=== PATIENT | male | born 1990 | race Caucasian/White ===

== ENCOUNTER → 2016-12-12 | Outpatient (REF) | payer SELFPAY ==
[2016-12-12 16:07] LABS: BASO % 0.7 % (0.0-1.0); EOS # 0.1 K/mm3 (0.0-0.50); LARGE UNSTAINED CELL # 0.1 K/mm3 (0.0-0.4); LARGE UNSTAINED CELL % 1.4 % (0.0-4.0); LYMPH # 1.2 K/mm3 (1.5-6.5); LYMPH % 31.4 % (24.0-44.0); MEAN CORPUSCULAR HEMOGLOBIN 31.6 pg (27.0-33.0); MEAN CORPUSCULAR HGB CONC 33.8 g/dl (32.0-36.5); MEAN CORPUSCULAR VOLUME 93.3 fl (80.0-96.0); MONO # 0.2 K/mm3 (0.0-0.8); MONO % 6.1 % (0.0-5.0); NEUTROPHILS # 2.1 K/mm3 (1.8-7.7); NEUTROPHILS % 57.4 % (36.0-66.0); PLATELET COUNT, AUTOMATED 197 k/mm3 (150-450); RED CELL DISTRIBUTION WIDTH 12.4 % (11.5-14.5); WHITE BLOOD COUNT 3.7 K/mm3 (4.0-10.0)
[2016-12-12 16:15] LABS: ALBUMIN 4.3 GM/DL (3.2-5.2); ALBUMIN/GLOBULIN RATIO 1.34 (1.00-1.93); ALKALINE PHOSPHATASE 53 U/L (45-117); ALT/SGPT 46 U/L (12-78); ANION GAP 7 MEQ/L (8-16); AST/SGOT 42 U/L (15-37); BILIRUBIN,TOTAL 0.5 MG/DL (0.2-1.0); BLOOD UREA NITROGEN 18 MG/DL (7-18); CALCIUM LEVEL 8.8 MG/DL (8.5-10.1); CARBON DIOXIDE LEVEL 30 MEQ/L (21-32); CHLORIDE LEVEL 103 MEQ/L (98-107); CREATININE FOR GFR 1.05 MG/DL (0.70-1.30); GLOMERULAR FILTRATION RATE > 60.0 (>60); GLUCOSE, FASTING 86 MG/DL (70-105); POTASSIUM SERUM 4.2 MEQ/L (3.5-5.1); SODIUM LEVEL 140 MEQ/L (136-145); TOTAL PROTEIN 7.5 GM/DL (6.4-8.2); URIC ACID 4.3 MG/DL (3.5-7.2)
[2016-12-12 18:45] LABS: ERYTHROCYTE SEDIMENTATION RATE 4 mm/hr (0-15)
== END ==
LOC: M LABDRAW1 15:30
PROVIDERS: ATTEND Orthopaedic Surgery
DX: M47.896 Other spondylosis, lumbar region (principal)

== ENCOUNTER → 2016-12-17 | Outpatient (CLI) | payer OTHER ==
--- NOTE | 2016-12-17 19:00 | REP ---
MR THORACIC SPINE WITHOUT CONTRAST: HISTORY: Back pain. A small central disc protrusion is present at the T6-7 level. There is minimal effacement of the thecal sac without spinal cord compression. The T6 neural foramina are patent. A small central disc protrusion is present at the T7-8 level. There is minimal effacement of the thecal sac without spinal cord compression. The T7 neural foramina are patent. A small central disc protrusion is present at the T8-9 level. There is minimal effacement of the thecal sac without spinal cord compression. The T8 neural foramina are patent. There is no other disc bulge or herniation. The remaining neural foramina are patent. The spinal cord is normal in signal and intensity. There is no intradural extramedullary lesion. There are old compression fracture of the T6 through T8 vertebral bodies with minimal height loss. Increased signal intensity on T2 weighted images is present in the endplates of the T7 through 9 vertebral bodies. This represents degenerative change. IMPRESSION: 1. Small disc protrusions at the T6-7 through T8-9 levels without spinal cord compression. 2. Old T6 through T8 compression fractures with minimal height loss. Signed by Yuri Mitchell MD 12/18/2016 08:21 A
--- NOTE | 2016-12-17 19:21 | REP ---
MRI LUMBAR SPINE WITHOUT CONTRAST: HISTORY: Back pain. Decreased signal intensity on T2-weighted images is present in the L4-5 and L5-S1 intervertebral discs. The discs are decreased in height. These findings are consistent with disc degeneration. There is no disc bulge or herniation at the L1-2 and L2-3 level. The nerves exit the neural foramina without compression. A diffuse disc bulge is present at the L3-4 level. There is minimal compression of thecal sac. The L3 nerves exit the neural foramina without compression. A diffuse disc bulge and small central disc protrusion are present at the L4-5 level. There is minimal compression of the thecal sac. The L4 nerves exit the neural foramina without compression. A diffuse disc bulge is present at the L5-S1 level. This abuts the thecal sac. The L5 nerves exit the neural foramina without compression. The conus medullaris is normal in appearance terminating at the level of the T12-L1 intervertebral discs . Normal signal intensity is present in the lumbar vertebral bodies. IMPRESSION: 1. Diffuse disc bulges at the L3-4 with minimal thecal sac compression. 2. Diffuse disc bulge and small central disc protrusion at the L4-5 level with minimal thecal sac compression. 3. Diffuse disc bulge at the L5-S1 level. This abuts the thecal sac. Signed by Yuri Mitchell MD 12/18/2016 08:20 A
== END ==
LOC: M RAD 15:59
PROVIDERS: ATTEND Orthopaedic Surgery
DX: M51.26 Other intervertebral disc displacement, lumbar region (principal); M51.27 Other intervertebral disc displacement, lumbosacral region; M51.24 Other intervertebral disc displacement, thoracic region; Z87.81 Personal history of (healed) traumatic fracture; M47.896 Other spondylosis, lumbar region; M47.894 Other spondylosis, thoracic region

== ENCOUNTER → 2017-05-18 | Outpatient (CLI) | payer OTHER ==
--- NOTE | 2017-06-03 01:00 | ECWPNPC ---
PATIENT NAME: FRAN TREJO : 1990 GENDER: MALE VISIT DATE: 05/18/2017 DISCHARGE DATE: 05/18/17 1626 VISIT LOCKED DATE TIME: PHYSICIAN: FÁTMIA MEDRANO RESOURCE: FÁTIMA MEDRANO REASON FOR APPOINTMENT 1. LOW BACK PAIN HISTORY OF PRESENT ILLNESS NEW PATIENT CONSULT: WHEN DID YOUR PAIN FIRST START? . BRIEFLY DESCRIBE HOW YOUR PAIN STARTED? . HOW DOES YOUR PAIN CHANGE WITH TIME? . DOES YOUR PAIN AWAKEN YOU FROM SLEEP? . HOW MANY HOURS OF SLEEP DO YOU NORMALLY GET? . ANY DIAGNOSTIC TESTING? . FACILITY WHERE TESTS WERE DONE? ____. PAIN TREATMENT TREATMENT YES CANCER HAVE YOU EVER HAD ANY TYPE OF CANCER?NO NO. 26 YEAR OLD MALE PATIENT WITH HISTORY OF CHRONIC LOW BACK PAIN. PATIENT DESCRIBES THE PAIN ACHING, SORE, TENDER, AND HAVING IT ALL THE TIME WITH A PAIN SCORE OF 5/10. PATIENT STATES HIS PAIN STARTED IN THE SUMMER OF 2015 AND HAS GOTTEN PROGRESSIVELY WORSE. PATIENT IS CURRENTLY USING TRAMADOL AND NAPROXEN TO AID IN PAIN RELIEF BUT STATES HE STILL HAS CONSTANT PAIN. PATIENT REPORTS NOT SLEEPING WELL AT NIGHT DUE TO THE PAIN. PATIENT DENIES UNEXPLAINABLE WEIGHT LOSS, FEVER, CHILLS, NEW CHANGES ON HER URINARY OR BOWEL CONTROL. PAIN SCREENING: PATIENT HAS A COMPLAINT OF ACUTE OR CHRONIC PAIN :YES FALL RISK SCREENING: SCREENING :NO FALLS IN THE PAST YEAR RM INVENTORY: QUESTIONNAIRE ASSESSEDTBD SCORE VALUE CALCULATED TBD CURRENT MEDICATIONS TAKING NAPROXEN 500 MG TABLET DELAYED RELEASE 1 TABLET ORALLY TWICE A DAY TAKING TRAMADOL HCL 50 MG TABLET 1 TAB ORALLY EVERY 6 HOURS NEEDED/MMD#4 MEDICATION LIST REVIEWED AND RECONCILED WITH THE PATIENT PAST MEDICAL HISTORY SCOLIOSIS DJD - 6 BULGING DISC ALLERGIES N.K.D.A. SURGICAL HISTORY RIGHT SHOULDER SURGERY ARTHOSCOPIC FEBRUARY 2017 FAMILY HISTORY FATHER: ALIVE MOTHER: ALIVE SIBLINGS: ALIVE SOCIAL HISTORY GENERAL: TOBACCO USE ARE YOU A:NONSMOKER ALCOHOL SCREENING POINTS0 INTERPRETATIONNEGATIVE CATHOLIC CATH[employer] LANGUAGES SPOKEN:NEPALI EDUCATION LEVEL OF EDUCATION:HIGH SCHOOL PAIN CLINIC PFS, CLERGY, PUBLIC HEALTH REFERRALS CLERGY REFERRAL NEEDED?NO WAS THE PROVIDER NOTIFIED OF ANY PERTINENT INFO?NO PFS REFERRAL NEEDED?NO PUBLIC HEALTH REFERRAL NEEDED?NO PATIENT: ____. HOSPITALIZATION/MAJOR DIAGNOSTIC PROCEDURE NO HOSPITALIZATION HISTORY. REVIEW OF SYSTEMS REVIEWED BY: PROVIDER: FÁTIMA MEDRANO MD . CONSTITUTIONAL: ANY CHANGE IN YOUR MEDICAL CONDITION? NO . CHILLS NO . FEVER NO . INFECTION: DO YOU HAVE NEW INFECTIONS? NO . DO YOU HAVE HISTORY OF MRSA? NO . MUSCULOSKELETAL: ANY NEW PATTERNS OF PAIN OR NUMBNESS? SEPTEMBER IS [facility] PT FIRST WENT TO DOCTOR FOR THE PAIN WHICH HAD BEEN BOTHERING HIM FOR A WHILD . SYTEMIC LUPUS NO . GASTROENTEROLOGY: ANY NEW CHANGE IN BOWEL CONTROL? NO . BARRETTS ESOPHAGUS NO . CIRRHOSIS NO . HEPATITIS NO . LIVER FAILURE NO . ACID REFLUX NO . UNEXPLAINED WEIGHT LOSS NO . GENITOURINARY: ANY NEW CHANGE IN BLADDER CONTROL? NO . IS THERE A CHANCE YOU COULD BE ? NO . HEMATOLOGY/LYMPH: DO YOU TAKE ANY BLOOD THINNERS? (FOR EXAMPLE- COUMADIN, PLAVIX, AGGRENOX, PLATEL, PRADAXA, OR XARELTO) NO . WHEN WAS YOUR LAST DOSE? DATE: TIME: . LOW PLATELET COUNT NO . SICKLE CELL DISEASE NO . VON WILLIEBRANDS NO . FACTOR V LEIDEN NO . THALLASEMIA NO . ANEMIA NO . EASY BRUISING NO . NEUROLOGY: HAVE YOU FALLEN IN THE PAST 6 MONTHS? NO . ANY NEW EXTREMITY NUMBNESS OR WEAKNESS? NO . HEAD INJURY NO . DEMENTIA NO . CEREBRAL PALSY NO . MULTIPLE SCLEROSIS NO . DIZZINESS NO . HEADACHE NO . STROKES NO . VERTIGO NO . CARDIOLOGY: DO YOU HAVE A PACEMAKER OR DEFIBRILLATOR? NO . ANGINA NO . HEART ATTACK NO . HEART SURGERY NO . CONGESTIVE HEART FAILURE/FLUID OVERLOAD NO . CHEST PAIN NO . HIGH BLOOD PRESSURE NO . IRREGULAR HEART BEAT NO . RESPIRATORY: HAVE YOU BEEN SICK IN THE PAST WEEK? NO . FEVER NO . FLU LIKE SYMPTOMS? NO . CPAP NO . BYPAP NO . ASTHMA NO . EMPHYSEMA NO . CHRONIC LUNG DISEASES NO . SHORTNESS OF BREATH ON EXERTION NO . DO YOU USE ANY TYPE OF TOBACCO (SMOKE, SMOKELESS, CHEW)? NO . COUGH NO . SNORING NO . INTEGUMENTARY: DO YOU HAVE ANY RASHES OR OPEN SORES? NO . ALLERGIC/IMMUNO: ARE YOU ALLERGIC TO SHELLFISH OR IV DYE? NO . ANY NEW ALLERGIES? NO . PSYCHIATRIC: DO YOU HAVE THOUGHTS OF HURTING YOURSELF OR SOMEONE ELSE? NO . ARE YOU ABUSED, NEGLECTED, OR IN AN UNSAFE ENVIRONMENT? NO . ENDOCRINOLOGY: ARE YOU DIABETIC? NO . THYROID DISORDER NO . OTHER: DO YOU NEED ANY PRESCRIPTIONS? NO . IF YES, PLEASE LIST: ____ . ANY NEW PROBLEMS WITH YOUR MEDICATIONS? NO . WHEN DID YOU LAST EAT? ____ . WHEN DID YOU LAST DRINK? ____ . WHAT DID YOU LAST DRINK? ____ . NAME OF PERSON DRIVING YOU HOME? ____ . DO YOU HAVE ANY OTHER QUESTIONS OR CONCERNS NO . VITAL SIGNS WT 170 LBS, HT 67 IN, BMI 26.62 INDEX, BP 112/61 MM HG, HR 91 /MIN, RR 16 /MIN, TEMP 99.0 F, OXYGEN SAT % 98%, NA INITIALS SC 13:52, REVIEWED BY: KG. EXAMINATION : PATIENT IS ALERT O X 3 AND COOPERATIVE. TENDERNESS IN THE LOWER BACK AND PARASPINAL MUSCLE GROUP. PATIENT POSITIVE FOR PAIN AT 50 DEGREES WITH STRAIGHT LEG RAISE. LEFT LEG IS WEAKER THEN THE RIGHT AT EXTENSION AND FLEXION. MRI DONE ON 12/17/16 OF THE LUMBAR SPINE SHOWS DISC BULGES AT L3-L4 THROUGH L5-S1 WITH COMPRESSION OVER THE THECAL SAC. 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 TREJO' PAIN MANAGEMENT CASE. AT THIS TIME THE PATIENT WILL START ZANAFLEX AT NIGHT TO AID IN PAIN AND MUSCLE SPASMS. PATIENT WAS ADVISED TO STOP THE MEDICATION IF HE HAS ANY ADVERSE SIDE EFFECTS. WE DISCUSSED SEVERAL INTERVENTIONS THAT MAY AID THE PATIENT IN PAIN RELIEF I WOULD LIKE THE PATIENT TO CONSIDER DOING AN INTERLAMINAR LUMBAR EPIDURAL DUE TO THE PAIN DOWN THE LEFT LEG. AT THIS TIME THE PATIENT WOULD LIKE TO PROCEED WITH MEDICATION MANAGEMENT BUT WILL CONSIDER IT IN THE FUTURE. PATIENT WILL RETURN TO THE CLINIC IN 3 WEEKS TO DISCUSS MEDICATION AND INTERVENTIONS. INSTRUCTIONS WERE GIVEN, QUESTIONS WERE ANSWERED, PATIENT REPORTS UNDERSTANDING AND AGREES WITH THE PLAN. I, MENDEL NETTLES, DOCUMENTED THE ABOVE INFORMATION ACTING A SCRIBE FOR DR. MEDRANO. I HAVE REVIEWED THE ABOVE DOCUMENT, WRITTEN BY MENDEL BUTLER AND I VERIFY THAT IT IS ACCURATE. DEAR YASMANY SIFUENTES:THANK YOU FOR YOUR KIND REFERRAL OF MR. TREJO. YOU WANT TO DISCUSS HER CASE WITH ME PLEASE CALL ME AT THE PAIN CENTER AT [phone]. SINCERELY,FÁTIMA MEDRANO, [facility]. OTHERS START ZANAFLEX CAPSULE, 2 MG, 1 CAPSULE NEEDED, ORALLY, BEFORE BEDTIME MAY REPEAT 5 HRS MDD2, 30 DAY(S), 50, REFILLS 1 NOTES: PATIENT EDUCATION WAS PRINTED,WHAT IS LUMBAR EPIDURAL INJECTION? MATERIAL WAS PRINTED,LUMBAR EPIDURAL INJECTION: RECOVERY AT HOME MATERIAL WAS PRINTED. PREVENTIVE MEDICINE PAIN CLINIC TEACHING: MEDICATIONS PRINTED INFORMATION ON ZANAFLEX GIVEN TO AND EXPLAINED TO PATIENT AND HE VERBALIZED UNDERSTANDING. AD. PROCEDURE TEACHING PT. REQUESTED PRINTED INFORMATION ON LESI SO THIS WAS PROVIDED TO AND REVIEWED WITH PT. HE VERBALIZED UNDERSTANDING AND IS GOING TO CONSIDER THE PROCEDURE. AD. PROCEDURE CODES FA211 ESTABILISHED PATIENT [facility] CHARGE G8427 DOC MEDS VERIFIED W/PT OR RE G8730 PAIN ASSESS POS TOOL F/U PLAN DOC DISPOSITION & COMMUNICATION FOLLOW UP 3 WEEKS ELECTRONICALLY SIGNED BY FÁTIMA MEDRANO MD ON 06/02/2017 AT 06:40 PM EDT DISCLAIMER : THIS IS A VISIT SUMMARY EXTRACTED FROM THE [employer] CHART. IT IS NOT A COPY OF THE [employer] PROGRESS NOTE. MTDD
== END ==
LOC: M PAIN 14:10
PROVIDERS: ATTEND Anesthesiology
DX: G89.29 Other chronic pain (principal); M51.16 Intervertebral disc disorders with radiculopathy, lumbar region; M51.17 Intervertebral disc disorders with radiculopathy, lumbosacral region; Z79.899 Other long term (current) drug therapy

== ENCOUNTER → 2017-06-18 | Outpatient (CLI) | payer OTHER ==
--- NOTE | 2017-07-04 00:19 | ECWPNPC ---
PATIENT NAME: FRAN TREJO : 1990 GENDER: MALE VISIT DATE: 06/18/2017 DISCHARGE DATE: 06/18/17 1100 VISIT LOCKED DATE TIME: PHYSICIAN: SOUMYA PAYAN RESOURCE: SOUMYA PAYAN REASON FOR APPOINTMENT 1. LOW BACK HISTORY OF PRESENT ILLNESS HISTORY OF PRESENT ILLNESS: PAIN THE PATIENT DESCRIBES THE PAIN... FALL RISK SCREENING: SCREENING :NO FALLS IN THE PAST YEAR TODAY'S VISIT: NOTES: RETURNS TODAY FOR MED FOLLOWUP FOR BACK PAIN. ORIGINAL REFERRAL LISTS THORACIC AND LOW BACK AREAS TO BE ADDRESSED. WAS STARTED ON TIZIDINE FOR PAIN AND SLEEP. DISCUSSION WAS HELP ABOUT DOING LESB. HE WOULD LIKE TO PUT THIS ON HOLD FOR A BIT. HAS NEW PAIN OF 2 WEEKS DURATION MORE IN THE MIDDLE CENTER OF SPINE. NO RADIATION TO THE RIBS. WITH THIS ALSO GET INCREASE IN PAIN TO LEGS L>R. RADIATES TO LEVEL OF TOES. HAS BEEN HAVING NUMBNESS AND TINGLING IN 3RD THROUGH 5TH TOES SINCE 01/02 ON BOTH FEET. LEGS FEEL WEAK PERIODICALLY. HAS A SENSE OF PIN AND NEEDLES AT PAIN AREA AND ACROSS THE SHOULDER. NO NEW TRAUMA RECENTLY. DID SEE DR TALLEY AT [facility] WHO SAID NO SURGICAL SOLUTION.. CURRENT MEDICATIONS TAKING TRAMADOL HCL 50 MG TABLET 1 TAB ORALLY EVERY 6 HOURS NEEDED/MMD#4 TAKING ZANAFLEX 2 MG CAPSULE 1 CAPSULE NEEDED ORALLY BEFORE BEDTIME MAY REPEAT 5 HRS MDD2 TAKING MOBIC 7.5 MG TABLET UNSURE OF DOSE ORALLY ONCE A DAY NOT-TAKING NAPROXEN 500 MG TABLET DELAYED RELEASE 1 TABLET ORALLY TWICE A DAY MEDICATION LIST REVIEWED AND RECONCILED WITH THE PATIENT PAST MEDICAL HISTORY SCOLIOSIS DJD - 6 BULGING DISC SURGICAL HISTORY RIGHT SHOULDER SURGERY ARTHOSCOPIC FEBRUARY 2017 REVIEW OF SYSTEMS REVIEWED BY: PROVIDER: SOUMYA OLSON . CONSTITUTIONAL: ANY CHANGE IN YOUR MEDICAL CONDITION? NO . CHILLS NO . FEVER NO . INFECTION: DO YOU HAVE NEW INFECTIONS? NO . DO YOU HAVE HISTORY OF MRSA? NO . MUSCULOSKELETAL: ANY NEW PATTERNS OF PAIN OR NUMBNESS? YES, THORACIC AREA . GASTROENTEROLOGY: ANY NEW CHANGE IN BOWEL CONTROL? NO . GENITOURINARY: ANY NEW CHANGE IN BLADDER CONTROL? NO . IS THERE A CHANCE YOU COULD BE ? NO . HEMATOLOGY/LYMPH: DO YOU TAKE ANY BLOOD THINNERS? (FOR EXAMPLE- COUMADIN, PLAVIX, AGGRENOX, PLATEL, PRADAXA, OR XARELTO) NO . WHEN WAS YOUR LAST DOSE? DATE: TIME: . NEUROLOGY: HAVE YOU FALLEN IN THE PAST 6 MONTHS? NO . ANY NEW EXTREMITY NUMBNESS OR WEAKNESS? NO . CARDIOLOGY: DO YOU HAVE A PACEMAKER OR DEFIBRILLATOR? NO . RESPIRATORY: HAVE YOU BEEN SICK IN THE PAST WEEK? NO . FEVER NO . FLU LIKE SYMPTOMS? NO . COUGH NO . INTEGUMENTARY: DO YOU HAVE ANY RASHES OR OPEN SORES? NO . ALLERGIC/IMMUNO: ARE YOU ALLERGIC TO SHELLFISH OR IV DYE? NO . ANY NEW ALLERGIES? NO . PSYCHIATRIC: DO YOU HAVE THOUGHTS OF HURTING YOURSELF OR SOMEONE ELSE? NO . ARE YOU ABUSED, NEGLECTED, OR IN AN UNSAFE ENVIRONMENT? NO . ENDOCRINOLOGY: ARE YOU DIABETIC? NO . OTHER: DO YOU NEED ANY PRESCRIPTIONS? NO . IF YES, PLEASE LIST: ____ . ANY NEW PROBLEMS WITH YOUR MEDICATIONS? NO . WHEN DID YOU LAST EAT? ____ . WHEN DID YOU LAST DRINK? ____ . WHAT DID YOU LAST DRINK? ____ . NAME OF PERSON DRIVING YOU HOME? ____ . DO YOU HAVE ANY OTHER QUESTIONS OR CONCERNS NO . VITAL SIGNS WT 170 LBS, HT 67 IN, BMI 26.62 INDEX, BP 103/67 MM HG, HR 49 /MIN, RR 18 /MIN, TEMP 97.1 F, OXYGEN SAT % 100, REVIEWED BY: NL. EXAMINATION GENERAL EXAMINATION: PSYCHALERT , ORIENTED X 3 , APPROPRIATE MOOD AND AFFECT . LUNGS:CLEAR TO AUSCULTATION BILATERALLY. HEART:NORMAL S1S2, NO MURMURS, CLICK OR RUBS. MUSCULOSKELETAL:SLR + 20 DEGREES ON RIGHT, 45 DEGREES ON LEFT.CAN FLEX SPINE TO 30 DEGREES, EXTEND TO 10 DEGREES. POINT TENDERNESS OVER THORACIC SPINOUS PROCESSESAS WELL OVER LUMBAR SPINOUS PROCESSES. EXTREMITIES:NO EDEMA. 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 TRY INVERSION TABLE START SLOW. PROCEDURE CODES FA211 ESTABILISHED PATIENT [facility] CHARGE DISPOSITION & COMMUNICATION FOLLOW UP 1 MONTH (REASON: BACK PAIN) ELECTRONICALLY SIGNED BY ROBERT MCCALL ON 07/03/2017 AT 08:36 AM EDT DISCLAIMER : THIS IS A VISIT SUMMARY EXTRACTED FROM THE [employer] CHART. IT IS NOT A COPY OF THE [employer] PROGRESS NOTE. MABEL
== END ==
LOC: M PAIN 10:45
PROVIDERS: ATTEND Nurse Practitioner Family
DX: M51.16 Intervertebral disc disorders with radiculopathy, lumbar region (principal); M51.17 Intervertebral disc disorders with radiculopathy, lumbosacral region; Z79.891 Long term (current) use of opiate analgesic; Z79.899 Other long term (current) drug therapy

== ENCOUNTER → 2017-07-28 | Outpatient (CLI) | payer OTHER ==
--- NOTE | 2017-07-28 23:45 | ECWPNPC ---
PATIENT NAME: FRAN TREJO : 1990 GENDER: MALE VISIT DATE: 07/28/2017 DISCHARGE DATE: 07/28/17 1226 VISIT LOCKED DATE TIME: PHYSICIAN: SOUMYA PAYAN RESOURCE: SOUMYA PAYAN REASON FOR APPOINTMENT 1. BACK HISTORY OF PRESENT ILLNESS HISTORY OF PRESENT ILLNESS: PAIN THE PATIENT DESCRIBES THE PAIN... FALL RISK SCREENING: SCREENING :NO FALLS IN THE PAST YEAR TODAY'S VISIT: NOTES: RATES PAIN TODAY 6/10. PAIN IS CENTERED AT MID BACK AND LOW BACK WITH RADIATION INTO MAINLY THE LEFT LEG. HAD SUDDEN ONSET NUMBNESS IN LEFT LEG 1 MONTH AGO. WAS SENT TO [facility] BY ON POST PROVIDER. CT WAS DONE AND WILL BE SEEING ORTHO BACK. EMG/NCS IS SCHEDULED FOR AUGUST. NOW WITH INTERMITTANT NT ALONG LATERASPECT OF LEFT LEG TO CALF. IS STILL HAVING SHARP PAIN IN MID THOR MARK AT END OF DAY. IS NOTING WEAKNESS IN BOTH HANDS AND HAS A GENERAL SES DEC IN BOTH HANDS. . CURRENT MEDICATIONS TAKING ZANAFLEX 2 MG CAPSULE 1 CAPSULE NEEDED ORALLY BEFORE BEDTIME MAY REPEAT 5 HRS MDD2 TAKING MOBIC 7.5 MG TABLET UNSURE OF DOSE ORALLY ONCE A DAY TAKING GABAPENTIN 100 MG CAPSULE DIRECTED ORALLY BID NOT-TAKING NAPROXEN 500 MG TABLET DELAYED RELEASE 1 TABLET ORALLY TWICE A DAY NOT-TAKING TRAMADOL HCL 50 MG TABLET 1 TAB ORALLY EVERY 6 HOURS NEEDED/MMD#4 MEDICATION LIST REVIEWED AND RECONCILED WITH THE PATIENT PAST MEDICAL HISTORY SCOLIOSIS DJD - 6 BULGING DISC ALLERGIES NO[ALLERGIES VERIFIED] SURGICAL HISTORY RIGHT SHOULDER SURGERY ARTHOSCOPIC FEBRUARY 2017 REVIEW OF SYSTEMS REVIEWED BY: PROVIDER: . CONSTITUTIONAL: ANY CHANGE IN YOUR MEDICAL CONDITION? NO . CHILLS NO . FEVER NO . INFECTION: DO YOU HAVE NEW INFECTIONS? NO . DO YOU HAVE HISTORY OF MRSA? NO . MUSCULOSKELETAL: ANY NEW PATTERNS OF PAIN OR NUMBNESS? YES LEFT LEG WENT NUMB / HE WENT TO THE ED/ REFERRED TO ORTHO WILL HAVE EMGNOV 16 & FOR BOTH UPPER AND LOWER EMG AND THEN F/U WITH ORTHO ON . GASTROENTEROLOGY: ANY NEW CHANGE IN BOWEL CONTROL? NO . GENITOURINARY: ANY NEW CHANGE IN BLADDER CONTROL? NO . IS THERE A CHANCE YOU COULD BE ? NO . HEMATOLOGY/LYMPH: DO YOU TAKE ANY BLOOD THINNERS? (FOR EXAMPLE- COUMADIN, PLAVIX, AGGRENOX, PLATEL, PRADAXA, OR XARELTO) NO . WHEN WAS YOUR LAST DOSE? DATE: TIME: . NEUROLOGY: HAVE YOU FALLEN IN THE PAST 6 MONTHS? NO . ANY NEW EXTREMITY NUMBNESS OR WEAKNESS? NO . CARDIOLOGY: DO YOU HAVE A PACEMAKER OR DEFIBRILLATOR? NO . RESPIRATORY: HAVE YOU BEEN SICK IN THE PAST WEEK? NO . FEVER NO . FLU LIKE SYMPTOMS? NO . COUGH NO . INTEGUMENTARY: DO YOU HAVE ANY RASHES OR OPEN SORES? NO . ALLERGIC/IMMUNO: ARE YOU ALLERGIC TO SHELLFISH OR IV DYE? NO . ANY NEW ALLERGIES? NO . PSYCHIATRIC: DO YOU HAVE THOUGHTS OF HURTING YOURSELF OR SOMEONE ELSE? NO . ARE YOU ABUSED, NEGLECTED, OR IN AN UNSAFE ENVIRONMENT? NO . ENDOCRINOLOGY: ARE YOU DIABETIC? NO . OTHER: DO YOU NEED ANY PRESCRIPTIONS? NO . IF YES, PLEASE LIST: ____ . ANY NEW PROBLEMS WITH YOUR MEDICATIONS? NO . WHEN DID YOU LAST EAT? ____ . WHEN DID YOU LAST DRINK? ____ . WHAT DID YOU LAST DRINK? ____ . NAME OF PERSON DRIVING YOU HOME? ____ . DO YOU HAVE ANY OTHER QUESTIONS OR CONCERNS NO . VITAL SIGNS WT 174.8 LBS, HT 67 IN, BMI 27.37 INDEX, BP 93/61 MM HG, HR 77 /MIN, RR 16 /MIN, TEMP 98.3 F, OXYGEN SAT % 97%, NA INITIALS SC 11:51, REVIEWED BY: NLPT BP NORMALLY LOW - NL. EXAMINATION GENERAL EXAMINATION: PSYCHALERT , ORIENTED X 3 , APPROPRIATE MOOD AND AFFECT . LUNGS:CLEAR TO AUSCULTATION BILATERALLY. HEART:HEART RATE REGULAR. MUSCULOSKELETAL:POINT TENDERNESS OVER THORACIC SPINOUS PROCESSES AT THE T6-7LEVEL AND OVER THE LUMBAR SPINOUS SPROCESSES AND ACROSS THE SACRUM. EXQUISITE TENDERNESS OVER THE LEFT SIJ. WEAKNESS WITH QUAD FLEXION NOTED BILATERALLY. ABLE TO FLEX AND EXTEND AT THE FOOT. . NEUROLOGIC EXAM:SENSORY CHANGE /DECREASE OVER ANTERIOR AND LATERAL LEFT THIGH AND LATERAL LEFT CALF.. 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 CONTINUE TENS, ICE HEAT, GENTLE STRETCHES. CLINICAL NOTES: OPTIONS FOR TREATMENT WERE DISCUSSED INCLUDING EPIDURAL INJECTION. PT'S QUESTIONS WERE ANSWERED BUT HE IS STILL RELUCTANT TO MOVE TO THIS TREATMENT. DECISION MADE TO TRY COURSE OF AIMEE STEROIDS. PROCEDURE CODES FA211 ESTABILISHED PATIENT [facility] CHARGE DISPOSITION & COMMUNICATION FOLLOW UP 1 MONTH (REASON: BACK PAIN REE NEED CT OF LUMBAR SPINE RESULTS FROM [facility] JUN 2017) ELECTRONICALLY SIGNED BY ROBERT MCCALL ON 07/28/2017 AT 12:53 PM EDT DISCLAIMER : THIS IS A VISIT SUMMARY EXTRACTED FROM THE [employer] CHART. IT IS NOT A COPY OF THE [employer] PROGRESS NOTE. MABEL
== END ==
LOC: M PAIN 11:45
PROVIDERS: ATTEND Nurse Practitioner Family
DX: G89.29 Other chronic pain (principal); M51.16 Intervertebral disc disorders with radiculopathy, lumbar region; M51.17 Intervertebral disc disorders with radiculopathy, lumbosacral region; Z79.891 Long term (current) use of opiate analgesic; Z79.899 Other long term (current) drug therapy

== ENCOUNTER → 2017-08-25 | Outpatient (CLI) | payer OTHER ==
--- NOTE | 2017-09-17 01:57 | ECWPNPC ---
PATIENT NAME: FRAN TREJO : 1990 GENDER: MALE VISIT DATE: 08/25/2017 DISCHARGE DATE: 08/25/17 1531 VISIT LOCKED DATE TIME: PHYSICIAN: SOUMYA PAYAN RESOURCE: SOUMYA PAYAN REASON FOR APPOINTMENT 1. REVIEW L.S. CT 1 MONTH FOLLOWUP HISTORY OF PRESENT ILLNESS HISTORY OF PRESENT ILLNESS: PAIN THE PATIENT DESCRIBES THE PAIN... FALL RISK SCREENING: SCREENING :NO FALLS IN THE PAST YEAR TODAY'S VISIT: NOTES: RATES PAIN TODAY 4/10. NOTES MEDS ARE GENERALLY HELPFUL. . CURRENT MEDICATIONS TAKING TRAMADOL HCL 50 MG TABLET 1 TAB ORALLY EVERY 6 HOURS NEEDED/MMD#4 TAKING ZANAFLEX 2 MG CAPSULE 1 CAPSULE NEEDED ORALLY BEFORE BEDTIME MAY REPEAT 5 HRS MDD2 TAKING MOBIC 15 MG TABLET UNSURE OF DOSE ORALLY ONCE A DAY TAKING GABAPENTIN 100 MG CAPSULE DIRECTED ORALLY BID NOT-TAKING NAPROXEN 500 MG TABLET DELAYED RELEASE 1 TABLET ORALLY TWICE A DAY NOT-TAKING PREDNISONE 10 MG TABLET 1 TABLET ORALLY TAKE 5 TABS PO X 2 DAY, 4 TAB PO X 2 DAY, 3 TAB POX 2 DAY, 2 TABS PO X 2 DAY 1 TAB PO X 2 DAY MEDICATION LIST REVIEWED AND RECONCILED WITH THE PATIENT PAST MEDICAL HISTORY SCOLIOSIS DJD - 6 BULGING DISC ALLERGIES N.K.D.A. SURGICAL HISTORY RIGHT SHOULDER SURGERY ARTHOSCOPIC FEBRUARY 2017 FAMILY HISTORY FATHER: ALIVE MOTHER: ALIVE SIBLINGS: ALIVE SOCIAL HISTORY GENERAL: TOBACCO USE ARE YOU A:NONSMOKER ALCOHOL SCREENING DID YOU HAVE A DRINK CONTAINING ALCOHOL IN THE PAST YEAR?YES HOW OFTEN DID YOU HAVE A DRINK CONTAINING ALCOHOL IN THE PAST YEAR?NEVER (0 POINTS) POINTS0 INTERPRETATIONNEGATIVE RASTAFARIAN ANBHBEIH32 MANDAEISM LANGUAGE LANGUAGES SPOKEN:[place] EDUCATION LEVEL OF EDUCATION:HIGH SCHOOL PAIN CLINIC PFS, CLERGY, PUBLIC HEALTH REFERRALS CLERGY REFERRAL NEEDED?NO WAS THE PROVIDER NOTIFIED OF ANY PERTINENT INFO?NO PFS REFERRAL NEEDED?NO PUBLIC HEALTH REFERRAL NEEDED?NO PATIENT: ____. ADVANCE DIRECTIVES HEALTH CARE PROXY?NO WOULD YOU LIKE MORE INFORMATION?NO DO YOU HAVE A DNR?NO WOULD YOU LIKE MORE INFORMATION?NO LIVING WILL?NO WOULD YOU LIKE MORE INFORMATION?NO POWER OF OFFICE RN?NO WOULD YOU LIKE MORE INFORMATION?NO HOSPITALIZATION/MAJOR DIAGNOSTIC PROCEDURE DENIES PAST HOSPITALIZATION REVIEW OF SYSTEMS REVIEWED BY: PROVIDER: . CONSTITUTIONAL: ANY CHANGE IN YOUR MEDICAL CONDITION? NO . CHILLS NO . FEVER NO . INFECTION: DO YOU HAVE NEW INFECTIONS? NO . DO YOU HAVE HISTORY OF MRSA? NO . MUSCULOSKELETAL: ANY NEW PATTERNS OF PAIN OR NUMBNESS? NO . GASTROENTEROLOGY: ANY NEW CHANGE IN BOWEL CONTROL? NO . GENITOURINARY: ANY NEW CHANGE IN BLADDER CONTROL? NO . IS THERE A CHANCE YOU COULD BE ? NO . HEMATOLOGY/LYMPH: DO YOU TAKE ANY BLOOD THINNERS? (FOR EXAMPLE- COUMADIN, PLAVIX, AGGRENOX, PLATEL, PRADAXA, OR XARELTO) NO . WHEN WAS YOUR LAST DOSE? DATE: TIME: . NEUROLOGY: HAVE YOU FALLEN IN THE PAST 6 MONTHS? NO . ANY NEW EXTREMITY NUMBNESS OR WEAKNESS? NO . CARDIOLOGY: DO YOU HAVE A PACEMAKER OR DEFIBRILLATOR? NO . RESPIRATORY: HAVE YOU BEEN SICK IN THE PAST WEEK? NO . FEVER NO . FLU LIKE SYMPTOMS? NO . COUGH NO . INTEGUMENTARY: DO YOU HAVE ANY RASHES OR OPEN SORES? NO . ALLERGIC/IMMUNO: ARE YOU ALLERGIC TO SHELLFISH OR IV DYE? NO . ANY NEW ALLERGIES? NO . PSYCHIATRIC: DO YOU HAVE THOUGHTS OF HURTING YOURSELF OR SOMEONE ELSE? NO . ARE YOU ABUSED, NEGLECTED, OR IN AN UNSAFE ENVIRONMENT? NO . ENDOCRINOLOGY: ARE YOU DIABETIC? NO . OTHER: DO YOU NEED ANY PRESCRIPTIONS? YES . IF YES, PLEASE LIST: GABAPENTIN . ANY NEW PROBLEMS WITH YOUR MEDICATIONS? NO . WHEN DID YOU LAST EAT? ____ . WHEN DID YOU LAST DRINK? ____ . WHAT DID YOU LAST DRINK? ____ . NAME OF PERSON DRIVING YOU HOME? ____ . DO YOU HAVE ANY OTHER QUESTIONS OR CONCERNS NO . VITAL SIGNS WT 170.2 LBS, HT 67 IN, BMI 26.65 INDEX, BP 103/62 MM HG, HR 54 /MIN, RR 16 /MIN, TEMP 98.8 F, OXYGEN SAT % 100%, NA INITIALS SC 14:42, REVIEWED BY: LS. ASSESSMENTS INTERVERTEBRAL DISC DISORDERS WITH RADICULOPATHY, LUMBAR REGION - M51.16 (PRIMARY) INTERVERTEBRAL DISC DISORDERS WITH RADICULOPATHY, LUMBOSACRAL REGION - M51.17 TREATMENT INTERVERTEBRAL DISC DISORDERS WITH RADICULOPATHY, LUMBAR REGION REFILL GABAPENTIN CAPSULE, 100 MG, DIRECTED, ORALLY, BID, 30 DAY(S), 60, REFILLS 5 REFILL MOBIC TABLET, 15 MG, 1 TAB, ORALLY, ONCE A DAY, 30 DAY(S), 30 TABLET, REFILLS 5 NOTES: CONTINUE CURRENT MEDS. PROCEDURE CODES FA211 ESTABILISHED PATIENT [facility] CHARGE DISPOSITION & COMMUNICATION FOLLOW UP OCT (REASON: BACK PAIN) ELECTRONICALLY SIGNED BY ROBERT MCCALL ON 09/15/2017 AT 08:32 AM EST DISCLAIMER : THIS IS A VISIT SUMMARY EXTRACTED FROM THE [employer] CHART. IT IS NOT A COPY OF THE [employer] PROGRESS NOTE. DANUTAD
== END ==
LOC: M PAIN 14:30
PROVIDERS: ATTEND Nurse Practitioner Family
DX: G89.29 Other chronic pain (principal); M51.16 Intervertebral disc disorders with radiculopathy, lumbar region; M51.17 Intervertebral disc disorders with radiculopathy, lumbosacral region; M41.9 Scoliosis, unspecified; Z79.891 Long term (current) use of opiate analgesic; Z79.899 Other long term (current) drug therapy; Z79.1 Long term (current) use of non-steroidal anti-inflammatories (NSAID)

== ENCOUNTER → 2017-10-23 | Outpatient (CLI) | payer OTHER | LOC: M PAIN 14:15 | DX: M51.16 Intervertebral disc disorders with radiculopathy, lumbar region (principal); M51.17 Intervertebral disc disorders with radiculopathy, lumbosacral region; Z79.899 Other long term (current) drug therapy | CPT/HCPCS: G0463 ==

== ENCOUNTER → 2017-12-04 | Outpatient (CLI) | payer OTHER | LOC: M PAIN 14:15 | DX: M51.16 Intervertebral disc disorders with radiculopathy, lumbar region (principal); M51.17 Intervertebral disc disorders with radiculopathy, lumbosacral region; Z79.899 Other long term (current) drug therapy | CPT/HCPCS: G0463 ==